=== PATIENT | female | born 2000 ===

== ENCOUNTER 2021-04-23 05:51 | Day surgery (SDC) | payer OTHER ==
[~2021-04-23] VITALS: Ht 154.9 cm; Wt 54.9 kg
[~2021-04-23 05:51] MED LIST: MAGNE PO; VITAMIN D310 MCG/1 M PO
[2021-04-23] MEDS ORDERED: IBU600 MG PO (11:37)
[2021-04-23] MEDS ORDERED: IBUPROFEN800 MG PO (11:39)
== END 2021-04-23 12:40 | disposition home or self-care (01) ==
LOC: CIR.AMB 05:51 → OB/GYN 05:51 → O/R 05:51 → OB/GYN 10:20 → EDSTATUS 11:00 → OB/GYN 11:00 → CIR.AMB 12:40 → O/R 12:40 → OB/GYN 13:30
PROVIDERS: ATTEND Obstetrics & Gynecology Gynecology
DX: N83.291 Other ovarian cyst, right side (principal); Z20.822 Contact with and (suspected) exposure to COVID-19